=== PATIENT | female | born 1975 | race Caucasian/White ===

== ENCOUNTER 2019-05-21 16:44 | Emergency (ER) | payer SELFPAY ==
[2019-05-21] MEDS ORDERED: NA CHLORIDE 0.9% 1,000 ML ONE (17:27)
[2019-05-21 18:39] LABS: Absolute Lymphocytes (CBC) 2.1 K/uL (0.7-4.9); Basophils % 0.9 % (0-1.3); Hematocrit 43.1 % (36.0-45.0); Lymphocytes % 24.3 % (15.3-44.8); MPV 9.2 fL (7.6-11.3); RBC Red Blood Cell Count 4.52 M/uL (3.86-4.86)
[2019-05-21 18:55] LABS: Potassium 3.8 mmol/L (3.5-5.1)
[2019-05-21] MEDS ORDERED: KETOROLAC 30 MG/ML INJ ONE (19:04)
--- NOTE | 2019-05-21 19:41 | RAD REPORT ---
EXAM DESCRIPTION: CT - Pelvis W/Cont - 05/21/2019 7:13 pm CLINICAL HISTORY: left inguinal LAD COMPARISON: <Comparisons> TECHNIQUE: All CT scans are performed using dose optimization technique as appropriate and may inclu de automated exposure control or mA/KV adjustment according to patient size. FINDINGS: No intrapelvic mass or free fluid. No abscess seen. Mild sigmoid diverticulosis is present without diverticulitis. A moderate sized fat containing left inguinal hernia is seen with a few adjacent prominent lymph node s. The fat within the hernia sac is mildly reticulated which could indicate subtle findings of incarc eration. No bowel involvement seen. No fracture or aggressive marrow lesion. IMPRESSION: Moderate fat containing left inguinal hernia with a few adjacent small lymph nodes noted . Subtle signs of incarceration are present within the hernia sac fat.
--- NOTE | 2019-05-21 19:56 | ER ---
Nurse's Notes [facility] Name: Andria Rangel Age: 44 yrs Sex: Female : 1975 Arrival Date: 05/21/2019 Time: 16:47 Bed 17 Private MD: Diagnosis: Inguinal hernia Presentation: 05/21 16:50 Presenting complaint: Patient states: "I have a bump right here (groin area)". Pt aa5 reports symptoms began 4-5 days ago. Transition of care: patient was not received from another setting of care. Onset of symptoms was May 2019. Risk Assessment: Do you want to hurt yourself or someone else? Patient reports no desire to harm self or others. Initial Sepsis Screen: Does the patient meet any 2 criteria? No. Patient's initial sepsis screen is negative. Does the patient have a suspected source of infection? No. Patient's initial sepsis screen is negative. Care prior to arrival: None. 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 - Social history:: Smoking status: Patient uses tobacco products, smokes one pack cigarettes per day. - Ebola Screening: : No symptoms or risks identified at this time. Screenin:48 Abuse screen: Denies threats or abuse. Denies injuries from another. Nutritional aj1 screening: No deficits noted. Tuberculosis screening: No symptoms or risk factors identified. 19:10 Fall Risk IV access (20 points). Total Mcmillan Fall Scale indicates No Risk (0-24 pts). rr5 Assessment: 17:48 General: Appears in no apparent distress. comfortable, Behavior is calm, cooperative, aj1 appropriate for age. Pain: Complains of pain in pelvis. Neuro: Level of Consciousness is awake, alert, obeys commands, Oriented to person, place, time, situation. Cardiovascular: Patient's skin is warm and dry. Respiratory: Airway is patent Respiratory effort is even, unlabored, Respiratory pattern is regular, symmetrical. GI: No signs and/or symptoms were reported involving the gastrointestinal system. : Reports lump in the pelvic area. EENT: No signs and/or symptoms were reported regarding the EENT system. Derm: No signs and/or symptoms reported regarding the dermatologic system. Skin is pink, warm \\T\\ dry. normal. Musculoskeletal: No signs and/or symptoms reported regarding the musculoskeletal system. Circulation, motion, and sensation intact. 18:33 Reassessment: Patient appears in no apparent distress at this time. No changes from aj1 previously documented assessment. Patient and/or family updated on plan of care and expected duration. Pain level reassessed. Patient is alert, oriented x 3, equal unlabored respirations, skin warm/dry/pink. 19:20 General: Appears in no apparent distress. comfortable, Behavior is calm, cooperative, rr5 appropriate for age. Pain: Complains of pain in pelvis Pain does not radiate. Pain currently is 2 out of 10 on a pain scale. Quality of pain is described as aching, Pain began gradually, Is intermittent. Neuro: Level of Consciousness is awake, alert, obeys commands, Oriented to person, place, time, situation, Appropriate for age. Cardiovascular: Capillary refill < 3 seconds Patient's skin is warm and dry. Respiratory: Airway is patent Respiratory effort is even, unlabored, Respiratory pattern is regular, symmetrical. GI: No signs and/or symptoms were reported involving the gastrointestinal system. : Reports lump in pelvic area. EENT: No signs and/or symptoms were reported regarding the EENT system. Derm: Skin is intact, Skin is pink, warm \\T\\ dry. Musculoskeletal: Circulation, motion, and sensation intact. Capillary refill < 3 seconds. 19:25 Reassessment: patient verbalized she don't need a pain medication right now. I feel rr5 fine. 20:09 Reassessment: Patient appears in no apparent distress at this time. Patient is alert, rr5 oriented x 3, equal unlabored respirations, skin warm/dry/pink. discharge instruction given and explained without complaints made, verbalized understanding. Vital Signs: 16:52 BP 112 / 74; Pulse 77; Resp 18 S; Temp 98.7(TE); Pulse Ox 96% on R/A; Weight 49.9 kg aa5 (R); Height 5 ft. 2 in. (157.48 cm) (R); Pain 8/10; 18:51 BP 112 / 72; Pulse 65; Resp 18; Pulse Ox 100% on R/A; tm3 19:20 BP 124 / 77; Pulse 69; Resp 17; Temp 98.7; Pulse Ox 99% ; Pain 2/10; rr5 20:08 BP 118 / 74; Pulse 65; Resp 17; Pulse Ox 100% on R/A; rr5 16:52 Body Mass Index 20.12 (49.90 kg, 157.48 cm) aa5 ED Course: 16:47 Patient arrived in ED. as 16:49 Brittany Ha FNP-C [facility]. snw 16:49 Marek Tamez MD is Attending Physician. snw 16:50 Arm band placed on. aa5 16:51 Triage completed. aa5 16:57 Ev Mccoy, RN is Primary Nurse. aj1 17:22 Radiology exam delayed due to lab results not completed at this time. (BUN/Creatinine) nj IV insertion attempt and/or patient not having appropriate IV at this time. 17:40 Missed attempt(s): 20 gauge in left antecubital area. aj1 17:45 Missed attempt(s): 22 gauge in right forearm. Bleeding controlled, band aid applied, aj1 catheter tip intact. 17:48 Patient has correct armband on for positive identification. Bed in low position. Call aj1 light in reach. 17:48 No provider procedures requiring assistance completed. aj1 18:04 Inserted saline lock: 22 gauge in left antecubital area, using aseptic technique. iw 19:15 CT Pelvis w cont In Process Unspecified. EDMS 19:19 CT completed. Patient tolerated procedure well. Patient moved back from CT. nj 19:54 Cale Sawant MD is Referral Physician. snw 20:10 IV discontinued, intact, bleeding controlled, No redness/swelling at site. Pressure rr5 dressing applied. Administered Medications: 18:32 Drug: NS 0.9% 1000 ml Route: IV; Rate: 125 ml/hr; Site: left antecubital; aj1 20:09 Follow up: Response: No adverse reaction; IV Status: Order to discontinue infusion; IV rr5 Intake: 200ml 19:59 Not Given (Patient Refused): TORadol 30 mg IVP once rr5 Intake: 20:09 IV: 200ml; Total: 200ml. rr5 Outcome: 19:54 Discharge ordered by . ella 20:10 Discharged to home ambulatory. rr5 20:10 Condition: stable 20:10 Discharge instructions given to patient, Instructed on discharge instructions, follow up and referral plans. medication usage, Demonstrated understanding of instructions, follow-up care, medications, Prescriptions given X 1. 20:12 Patient left the ED. rr5 Signatures: Dispatcher [employer] EDMS Ev Mccoy, MILANA RN aj1 Jazmin, Leoncio tm3 Brittany Ha, SCOURING TRAIN OPERATOR CHIEF-C SCOURING TRAIN OPERATOR CHIEF-CsnRadha Ahumada Irene, RN RN Sarah Cruz RN RN aa5 Anish Johnson Raymond, RN RN rr5
--- NOTE | 2019-05-21 19:57 | EDPHYS ---
Physician Documentation [facility] Name: Andria Rangel Age: 44 yrs Sex: Female : 1975 Arrival Date: 05/21/2019 Time: 16:47 Bed 17 Private MD: ED Physician Marek Tamez HPI: 05/21 17:25 This 44 yrs old Female presents to ER via Ambulatory with complaints of snw Vaginal Problem. 17:25 Onset: The symptoms/episode began/occurred suddenly, noted two to three days ago. On snw menstrual cycle today. Denies pain, illness, fever. Associated signs and symptoms: The patient has no apparent associated signs or symptoms. The patient has not experienced similar symptoms in the past. It is unknown whether or not the patient has recently seen a physician. 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 - Social history:: Smoking status: Patient uses tobacco products, smokes one pack cigarettes per day. - Ebola Screening: : No symptoms or risks identified at this time. ROS: 17:23 Constitutional: Negative for fever, chills, and weight loss, Eyes: Negative for injury, snw pain, redness, and discharge, ENT: Negative for injury, pain, and discharge, Neck: Negative for injury, pain, and swelling, Cardiovascular: Negative for chest pain, palpitations, and edema, Respiratory: Negative for shortness of breath, cough, wheezing, and pleuritic chest pain, Abdomen/GI: Negative for abdominal pain, nausea, vomiting, diarrhea, and constipation, left inguinal lymphadenopathy Back: Negative for injury and pain, : Negative for injury, bleeding, discharge, and swelling, MS/Extremity: Negative for injury and deformity, Skin: Negative for injury, rash, and discoloration, Neuro: Negative for headache, weakness, numbness, tingling, and seizure. Exam: 17:17 Constitutional: This is a well developed, well nourished patient who is awake, alert, snw and in no acute distress. Head/Face: Normocephalic, atraumatic. Eyes: Pupils equal round and reactive to light, extra-ocular motions intact. Lids and lashes normal. Conjunctiva and sclera are non-icteric and not injected. Cornea within normal limits. Periorbital areas with no swelling, redness, or edema. ENT: Nares patent. No nasal discharge, no septal abnormalities noted. Tympanic membranes are normal and external auditory canals are clear. Oropharynx with no redness, swelling, or masses, exudates, or evidence of obstruction, uvula midline. Mucous membranes moist. Neck: Trachea midline, no thyromegaly or masses palpated, and no cervical lymphadenopathy. Supple, full range of motion without nuchal rigidity, or vertebral point tenderness. No Meningismus. Chest/axilla: Normal chest wall appearance and motion. Nontender with no deformity. No lesions are appreciated. Cardiovascular: Regular rate and rhythm with a normal S1 and S2. No gallops, murmurs, or rubs. Normal PMI, no JVD. No pulse deficits. Respiratory: Lungs have equal breath sounds bilaterally, clear to auscultation and percussion. No rales, rhonchi or wheezes noted. No increased work of breathing, no retractions or nasal flaring. Abdomen/GI: Soft, non-tender, with normal bowel sounds. No distension or tympany. No guarding or rebound. No evidence of tenderness throughout. Back: No spinal tenderness. No costovertebral tenderness. Full range of motion. Pelvic Exam: Normal external genitalia. + left inguinal lymphadenopathy Skin: Warm, dry with normal turgor. Normal color with no rashes, no lesions, and no evidence of cellulitis. MS/ Extremity: Pulses equal, no cyanosis. Neurovascular intact. Full, normal range of motion. Neuro: Awake and alert, GCS 15, oriented to person, place, time, and situation. Cranial nerves II-XII grossly intact. Motor strength 5/5 in all extremities. Sensory grossly intact. Cerebellar exam normal. Normal gait. Psych: Awake, alert, with orientation to person, place and time. Behavior, mood, and affect are within normal limits. Vital Signs: 16:52 BP 112 / 74; Pulse 77; Resp 18 S; Temp 98.7(TE); Pulse Ox 96% on R/A; Weight 49.9 kg aa5 (R); Height 5 ft. 2 in. (157.48 cm) (R); Pain 8/10; 18:51 BP 112 / 72; Pulse 65; Resp 18; Pulse Ox 100% on R/A; tm3 19:20 BP 124 / 77; Pulse 69; Resp 17; Temp 98.7; Pulse Ox 99% ; Pain 2/10; rr5 20:08 BP 118 / 74; Pulse 65; Resp 17; Pulse Ox 100% on R/A; rr5 16:52 Body Mass Index 20.12 (49.90 kg, 157.48 cm) aa5 MDM: 16:55 Patient medically screened. snw 19:55 Data reviewed: vital signs, nurses notes. Data interpreted: Pulse oximetry: on room air snw is 99 %. Interpretation: normal. Counseling: I had a detailed discussion with the patient and/or guardian regarding: the historical points, exam findings, and any diagnostic results supporting the discharge/admit diagnosis, lab results, radiology results, the need for outpatient follow up, for definitive care. Physician consultation: Cale Sawant MD was called at 19:56, was contacted at 19:56, regarding patient's condition, outpatient follow-up, in 2-3 days, next week, "f/u outpatient". 05/21 17:16 Order name: CBC with Diff; Complete Time: 18:51 snw 05/21 17:16 Order name: Chem 7; Complete Time: 18:57 snw 05/21 17:16 Order name: CT Pelvis w cont; Complete Time: 19:50 snw 05/21 17:16 Order name: Blood Culture Adult (2) snw Administered Medications: 18:32 Drug: NS 0.9% 1000 ml Route: IV; Rate: 125 ml/hr; Site: left antecubital; aj1 20:09 Follow up: Response: No adverse reaction; IV Status: Order to discontinue infusion; IV rr5 Intake: 200ml 19:59 Not Given (Patient Refused): TORadol 30 mg IVP once rr5 Disposition: 05/21/19 19:54 Discharged to Home. Impression: Inguinal hernia. - Condition is Stable. - Discharge Instructions: Diverticulosis, Inguinal Hernia, Adult. - Prescriptions for Mobic 7.5 mg Oral Tablet - take 1 tablet by ORAL route once daily take with food; 20 tablet. - Medication Reconciliation Form, Thank You Letter, Antibiotic Education, Prescription Opioid Use form. - Follow up: Cale Sawant MD; When: 2 - 3 days; Reason: Recheck today's complaints, Continuance of care. Addendum: 05/24/2019 09:28 Co-signature as Attending Physician, Marek Tamez MD I agree with the assessment and k dr plan of care. Signatures: Dispatcher [employer] EDEv De Luna, RN RN aj1 Marek Tamez MD MD [facility] Brittany Ha, CLASSIFIER OPERATOR-C CLASSIFIER OPERATOR-Csnw Sarah Winslow, RN RN aa5 Scooter Carrillo RN RN rr5 Corrections: (The following items were deleted from the chart) 05/21 20:12 19:54 05/21/2019 19:54 Discharged to Home. Impression: Inguinal hernia. Condition is rr5 Stable. Forms are Medication Reconciliation Form, Thank You Letter, Antibiotic Education, Prescription Opioid Use. Follow up: Dr. Cale Sawant; When: 2 - 3 days; Reason: Recheck today's complaints, Continuance of care. snw
== END 2019-05-21 20:12 | disposition home or self-care (01) ==
LOC: ER 16:44
DX: K40.90 Unilateral inguinal hernia, without obstruction or gangrene, not specified as recurrent (principal); F17.210 Nicotine dependence, cigarettes, uncomplicated; Z88.0 Allergy status to penicillin
CPT/HCPCS: 36415; 72193; 80048; 85025; 87040; 96360; 96361; 99284; J7030; Q9967

== ENCOUNTER 2020-05-13 14:15 | Emergency (ER) | payer SELFPAY ==
--- NOTE | 2020-05-13 14:30 | EDPHYS ---
Physician Documentation [facility] Name: Andria Rangel Age: 45 yrs Sex: Female : 1975 Arrival Date: 05/13/2020 Time: 14:17 Bed 8 Private MD: ED Physician Marek Tamez HPI: 05/13 14:32 This 45 yrs old Female presents to ER via Unassigned with complaints of kdr Insect Bite. 14:32 The patient presents with tenderness, Eryethema. The complaints affect the left foot. kdr Context: The problem was sustained at home, resulted from Insect/ant bite. Onset: The symptoms/episode began/occurred gradually, 3 day(s) ago. Modifying factors: The symptoms are alleviated by nothing, the symptoms are aggravated by weight bearing, movement. Associated signs and symptoms: The patient has no apparent associated signs or symptoms. Severity of symptoms: At their worst the symptoms were mild, in the emergency department the symptoms are unchanged. The patient has not experienced similar symptoms in the past. The patient has not recently seen a physician. 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 - Social history:: Smoking status: Patient reports the use of cigarette tobacco products, smokes two packs cigarettes per day. ROS: 14:32 Constitutional: Negative for fever, chills, and weight loss, Eyes: Negative for injury, kdr pain, redness, and discharge. 14:32 Skin: Positive for cellulitis, of the lateral side of left foot and dorsum of left foot. Exam: 14:32 Constitutional: This is a well developed, well nourished patient who is awake, alert, kdr and in no acute distress. Head/Face: Normocephalic, atraumatic. 14:32 Skin: cellulitis, that is mild, on the dorsum of left foot. Vital Signs: 14:31 BP 129 / 87; Pulse 84; Resp 18; Temp 98.3; Pulse Ox 100% on R/A; ph 15:01 BP 109 / 91; Pulse 76; Resp 16; Pulse Ox 99% ; Pain 5/10; ll1 MDM: 14:30 Patient medically screened. kdr 14:32 Data reviewed: vital signs, nurses notes. Counseling: I had a detailed discussion with kdr the patient and/or guardian regarding: the historical points, exam findings, and any diagnostic results supporting the discharge/admit diagnosis, the need for outpatient follow up. Administered Medications: 14:40 Drug: Clindamycin 600 mg Route: IM; Site: left gluteus; ll1 15:01 Follow up: Response: No adverse reaction; RASS: Alert and Calm (0) ll1 14:45 Drug: Doxycycline 100 mg Route: PO; ll1 15:01 Follow up: Response: No adverse reaction; RASS: Alert and Calm (0) ll1 Disposition: 05/13/20 14:30 Discharged to Home. Impression: Cellulitis of left lower limb. - Condition is Stable. - Discharge Instructions: Cellulitis, Adult, [id number]. - Prescriptions for Doxycycline Hyclate 100 mg Oral Tablet - take 1 tablet by ORAL route every 12 hours; 20 tablet. Tramadol 50 mg Oral Tablet - take 1 tablet by ORAL route every 8 hours as needed; 12 tablet. - Medication Reconciliation Form, Thank You Letter, Antibiotic Education, Work release form form. - Follow up: Private Physician; When: 2 - 3 days; Reason: If symptoms return, Further diagnostic work-up, Recheck today's complaints, Continuance of care, Re-evaluation by your physician. - Problem is new. - Symptoms are unchanged. Signatures: Marek Tamez MD MD [facility] Candida Magallon RN RN Reji Yanes RN RN 1 Corrections: (The following items were deleted from the chart) 15:02 14:30 05/13/2020 14:30 Discharged to Home. Impression: Cellulitis of left lower limb. ll1 Condition is Stable. Forms are Medication Reconciliation Form, Thank You Letter, Antibiotic Education, Prescription Opioid Use. Follow up: Private Physician; When: 2 - 3 days; Reason: If symptoms return, Further diagnostic work-up, Recheck today's complaints, Continuance of care, Re-evaluation by your physician. Problem is new. Symptoms are unchanged. kdr
[2020-05-13] MEDS ORDERED: CLINDAMYCIN IV 150 MG/ML (4 mL) VIAL ONE (14:46)
[2020-05-13] MEDS ORDERED: DOXYCYCLINE 100 MG CAP PO ONE (14:46)
--- NOTE | 2020-05-13 15:02 | ER ---
Nurse's Notes [facility] Name: Andria Rangel Age: 45 yrs Sex: Female : 1975 Arrival Date: 05/13/2020 Time: 14:17 Bed 8 Private MD: Diagnosis: Cellulitis of left lower limb Presentation: 05/13 14:31 Chief complaint: Patient states: Bitten by ants on 04/28, states, " I had some ant ph bites on my foot and had a scab left that I picked at, then last night I soaked it in epsom salt and put a salve on it and today it was red and painful." Small scab noted to dorsum of L foot, redness noted, pt denies fever, N/V. Coronavirus screen: Client denies travel out of the [place] in the last 14 days. At this time, the client does not indicate any symptoms associated with coronavirus-19. Ebola Screen: No symptoms or risks identified at this time. Initial Sepsis Screen: Does the patient meet any 2 criteria? No. Patient's initial sepsis screen is negative. Does the patient have a suspected source of infection? No. Patient's initial sepsis screen is negative. Risk Assessment: Do you want to hurt yourself or someone else? Patient reports no desire to harm self or others. Onset of symptoms was May 13, 2020. 14:31 Method Of Arrival: Ambulatory 14:31 Acuity: SARAH 4 Triage Assessment: 14:33 Bite description: bite sustained to dorsum of left foot by ant. General: Appears in no ph apparent distress. comfortable, slender, well groomed, Behavior is calm, cooperative, appropriate for age. Pain: Complains of pain in left foot. Neuro: Level of Consciousness is awake, alert, obeys commands, Oriented to person, place, time, situation. Cardiovascular: Capillary refill < 3 seconds in bilateral fingers Patient's skin is warm and dry. Respiratory: Airway is patent Respiratory effort is even, unlabored. Derm: Skin is healthy with good turgor, Skin is pink, warm \\T\\ dry. Injury Description: Bite sustained to dorsum of left foot is from insect redness noted to foot. 14:37 Bite description: animal information: vaccination(s) is not applicable. 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 - Social history:: Smoking status: Patient reports the use of cigarette tobacco products, smokes two packs cigarettes per day. Screenin:33 Abuse screen: Denies threats or abuse. Denies injuries from another. Nutritional ph screening: No deficits noted. Tuberculosis screening: No symptoms or risk factors identified. Fall Risk None identified. Assessment: 14:59 Reassessment: Patient appears in no apparent distress at this time. No changes from ll1 previously documented assessment. Patient and/or family updated on plan of care and expected duration. Pain level reassessed. Patient is alert, oriented x 3, equal unlabored respirations, skin warm/dry/pink. General: Appears in no apparent distress. Behavior is calm, cooperative. Derm: Wound noted left foot Wound is small puncture wound with surrounding redness. Reports pain. Injury Description: Bite sustained to left foot caused by a fire ant, is infected. Vital Signs: 14:31 BP 129 / 87; Pulse 84; Resp 18; Temp 98.3; Pulse Ox 100% on R/A; ph 15:01 BP 109 / 91; Pulse 76; Resp 16; Pulse Ox 99% ; Pain 5/10; ll1 ED Course: 14:17 Patient arrived in ED. mr 14:19 Marek Tamez MD is Attending Physician. kdr 14:31 Candida Magallon RN is Primary Nurse. ph 14:33 Triage completed. ph 14:35 Arm band placed on. ph 14:36 Patient has correct armband on for positive identification. Bed in low position. Call ph light in reach. Side rails up X 1. Pulse ox on. NIBP on. Door closed. Noise minimized. 14:36 No provider procedures requiring assistance completed. Patient did not have IV access ph during this emergency room visit. Administered Medications: 14:40 Drug: Clindamycin 600 mg Route: IM; Site: left gluteus; ll1 15:01 Follow up: Response: No adverse reaction; RASS: Alert and Calm (0) ll1 14:45 Drug: Doxycycline 100 mg Route: PO; ll1 15:01 Follow up: Response: No adverse reaction; RASS: Alert and Calm (0) ll1 Outcome: 14:30 Discharge ordered by . jimi 14:37 Discharged to home ambulatory. ph 14:37 Condition: good 14:37 Discharge instructions given to patient, Instructed on discharge instructions, follow up and referral plans. medication usage, Demonstrated understanding of instructions, follow-up care, medications, Prescriptions given X 2. 15:02 Patient left the ED. 1 Signatures: Marek Tamez MD MD kdr Rivera, Mary mr Hall, Patricia RN RN [facility] Center[facility] RN RN 1
[2020-05-13 15:13] VITALS: TEMP 98.3
[2020-05-13 15:14] VITALS: BP 109/91; O2SAT 99
== END 2020-05-13 15:02 | disposition home or self-care (01) ==
LOC: ER 14:15
DX: L03.116 Cellulitis of left lower limb (principal); F17.210 Nicotine dependence, cigarettes, uncomplicated; Z88.0 Allergy status to penicillin
CPT/HCPCS: 96372; 99283; S0077